=== PATIENT | male | born 1980 | race Two or more races ===

== ENCOUNTER 2024-03-23 21:33 | Emergency (ER) | payer OTHER, SELFPAY ==
[2024-03-23 21:35] VITALS: BMI 29.5
[2024-03-23 21:51] VITALS: BP 150/92; PULSE 92; RESP 20; TEMP 36.7; O2SAT 95
[2024-03-23] MEDS: FAMOTIDINE INJ 10 MG/ML VIAL 2 ML 20 MG IVP (22:08)
[2024-03-23] MEDS: DiphenhydrAMINE INJ 50 MG/ML VIAL IVP (22:08)
[2024-03-23] MEDS: MethylPREDNISolone SOD SUCC 62.5 MG/ML 2ML VIAL 125 MG IVP (22:08)
[2024-03-23] MEDS: SODIUM CHLORIDE 0.9% 1000 ML 1,000 ML 999 ML IV (22:08)
--- NOTE | 2024-03-23 22:12 | PD.EDALLER ---
ED Allergic Reaction RME/HPI General Chief complaint: Allergic Reaction Stated complaint: FACIAL SWELLING Time Seen by Provider: 03/23/24 21:58 Arrival date/time: 03/23/24 21:33 44M with no significant PMH presents to ED with 30 min of generalized itching and swelling after eating while at a wedding today. Patient denies known new foods, meds, and hygiene products, as well as throat swelling and SOB. Limitations: no limitations Related Data Previous Rx's ?Medication ?Instructions ?Recorded prednisone 50 mg tablet 50 mg PO QDAY 7 days #7 tabs 03/24/24 Allergies Allergy/AdvReac Type Severity Reaction Status Date / Time No Known Allergies Allergy Verified 03/23/24 21:35 Review of Systems Review of Systems Systems Reviewed: All systems reviewed, normal except as documented Constitutional Constitutional: Reports system reviewed and no additional complaints, except as documented, Denies fever(s) and Denies headache(s) ENT Ears, Nose, Mouth, and Throat: Denies disequilibrium and Denies headache(s) Cardiovascular Cardiovascular: Reports system reviewed and no additional complaints, except as documented, Denies chest pain and Denies dyspnea Respiratory Respiratory: Reports system reviewed and no additional complaints, except as documented, Denies cough and Denies dyspnea Gastrointestinal Gastrointestinal: Reports system reviewed and no additional complaints, except as documented, Denies abdominal pain, Denies nausea and Denies vomiting Integumentary/Breasts Skin/Breast: Reports as per HPI, Reports pruritus and Reports rash Neurologic Neurologic: Reports system reviewed and no additional complaints, except as documented, Denies confusion, Denies disequilibrium and Denies headache(s) Psychiatric Psychiatric: Denies confusion Past Medical History Social History SMOKING STATUS: Never smoker ED Exam General Limitations: Present no limitations General appearance: Present alert and in no apparent distress Head Head exam: Present atraumatic Eye Eye exam: Present normal appearance, PERRL and EOMI ENT ENT exam: Present normal exam, normal oropharynx and mucous membranes moist Neck Neck exam: Present normal inspection, full ROM and trachea midline Chest Chest inspection: Present normal inspection and symmetric chest wall rise Respiratory Respiratory exam: Present normal lung sounds bilaterally Cardiovascular Cardiovascular exam: Present regular rate, normal rhythm and normal heart sounds Abdominal Exam Abdominal exam: Present soft and normal bowel sounds Extremities Exam Extremities exam: Present normal inspection and full ROM Back Exam Back exam: Present normal inspection and full ROM Neurological Exam Neurological exam: Present alert, oriented X3 and CN II-XII intact Psychiatric Psychiatric exam: Present normal affect and normal mood Skin Skin exam: Present warm, dry, intact, normal color and rash Course Quality Measures none Orders Category Date Time Status Insert IV NOW Care 03/23/24 21:59 Active DiphenhydrAMINE INJ [Benadryl Inj] Med 03/23/24 21:59 Discontinued 50 mg IVP X1 ONE Famotidine Inj [Pepcid Inj] Med 03/23/24 21:59 Discontinued 20 mg IVP X1 ONE MethylPREDNISolone.* [SoluMEDROL Inj] Med 03/23/24 21:59 Discontinued 125 mg IVP X1 ONE Sodium Chloride 0.9% 1000 ml [Ns] 1,000 ml Med 03/23/24 21:59 Discontinued IV 999 mls/hr Vital Signs Vital signs: Vital Signs Temperature 98.0 F 03/23/24 21:51 Pulse Rate 92 03/23/24 21:51 Respiratory Rate 20 03/23/24 21:51 Blood Pressure 150/92 H 03/23/24 21:51 Pulse Oximetry (%) 95 03/23/24 21:51 Oxygen Delivery Method Room Air 03/23/24 21:51 O2 at 95% RA and WNLs Allergic Reaction MDM Narrative MDM Narrative:: 44M with no significant PMH presents to ED with 30 min of generalized itching and swelling after eating while at a wedding today. Patient denies known new foods, meds, and hygiene products, as well as throat swelling and SOB. Physical exam reveals facial swelling and upper body urticaria. Clear ENT and lungs. RRR. Normal WOB. Patient is afebrile, calm, and alert. Significant improvement with meds. Patient data External records reviewed:: None Clinical information provided by:: patient Social determinants that could affect healthcare access:: none Patient has the following chronic illnesses:: none How is presenting disease/condition affected by chronic disease/condition?: no chronic disease Evaluation data The following diagnostics were reviewed and interpreted by me:: other (specify) (none) Lab and/or radiology exams considered but not ordered:: not ordered Interpretation Summary: n/a Medications / Prescriptions Medications or Prescriptions considered but not ordered:: ordered Medication administrations:: Medication Administration History Discontinued Medications Diphenhydramine HCl (Diphenhydramine Inj 50 Mg/Ml Vial) 50 mg IVP X1 ONE Stop: 03/23/24 22:00 Last Admin: 03/23/24 22:08 Dose: 50 mg Documented By: CASANDRA Famotidine (Famotidine Inj 10 Mg/Ml Vial 2 Ml) 20 mg IVP X1 ONE Stop: 03/23/24 22:00 Last Admin: 03/23/24 22:08 Dose: 20 mg Documented By: CASANDRA Sodium Chloride (Ns) 1,000 mls @ 999 mls/hr IV .Q1H1M ONE Stop: 03/23/24 22:59 Last Admin: 03/23/24 22:08 Dose: 999 mls/hr Documented By: CASANDRA Methylprednisolone Sodium Succinate (Methylprednisolone Sod Succ 62.5 Mg/Ml 2ml Vial) 125 mg IVP X1 ONE Stop: 03/23/24 22:00 Last Admin: 03/23/24 22:08 Dose: 125 mg Documented By: CASANDRA above Consultations Consultation(s) initiated? (list below): No Diagnosis Differential Diagnosis allergic reaction: anaphylaxis, allergic reaction, angioedema, contact dermatitis, adverse reaction to drug, viral enanthem and urticaria Most likely diagnosis given after review of the tests above:: allergic reaction Admission Indicated Admission indicated?: not indicated Admission Request Was there a request for admission?: No Disposition Plan Disposition Plan: Discharge Discharge Attestation Discharge Attestation: The patient and all family members were given an opportunity to ask questions and understood the discharge instructions. Discharge instructions specifically effects, indications for sooner follow up or return to the emergency department, and the expected course of current diagnosis. Patient condition: Stable Discharge Plan Plan Patient Disposition: HOME (Self Care) Disposition Comment: Stable Prescriptions/Referrals Prescriptions/Med Rec: New prednisone 50 mg tablet 50 mg PO QDAY 7 Days Qty: 7 0RF Problem List Clinical Impression: Allergic reaction Patient/Caregiver Discharge Instructions Education Materials: Understanding Hives (Urticaria), ED Food Allergy Additional Instructions: Please follow-up with PCP within 24-48 hours and return immediately if symptoms worsen. Take OTC antihistamine as needed until symptoms resolve. Finish entire steroid course. Print Language: Armenian Stand Alone Forms: Patient Portal Info Letter VIDA/KYLAH Supervising Physician VIDA/KYLAH Supervising Physician: Dr. Rodriguez
[2024-03-24 00:32] VITALS: BP 147/96; PULSE 78; RESP 16; TEMP 36.6; O2SAT 97
== END 2024-03-24 00:42 | disposition home or self-care (01) ==
PROVIDERS: Emergency Provider Emergency Medicine
DX: T78.40XA Allergy, unspecified, initial encounter (principal)
CPT/HCPCS: 96361; 96374; 96375; 99284; J1200; J2919; J3490; J7030